=== PATIENT | female | born 1985 | race Caucasian/White ===

== ENCOUNTER 2019-09-03 17:27 | Emergency (ER) | payer OTHER ==
[~2019-09-03] VITALS: Ht 149.9 cm; Wt 59.9 kg
[2019-09-03 17:41] VITALS: BP_SYST 117
--- NOTE | 2019-09-03 18:29 | NUR ---
PATIENT PRESENTS TO THE ER WITH POSSIBLE FOREIGN BODY (GLASS) TO RIGHT MEDIAL DISTAL #2 DIGIT; WOUND HAS HEALED AND PATIENT SUSPECTS SOME GLASS MIGHT BE PRESENT SECONDARY TO PAIN; SEVEN DAY DURATION; NO FURTHER TRAUMA, NO OTHER REMARKABLE S/S
[2019-09-03 19:29] VITALS: BP_SYST 127
--- NOTE | 2019-09-03 19:29 | NUR ---
Patient given written and verbal discharge instructions and verbalizes understanding. ER MD Mcfarlane discussed with patient the results and treatment provided. Patient in stable condition. ID arm band removed. Rx of Motrin, Clindamycin given. Patient educated on pain management and to follow up with PMD. Pain Scale 0. Opportunity for questions provided and answered. Medication side effect fact sheet provided.
== END 2019-09-03 19:29 | disposition home or self-care (01) ==
LOC: SED 17:27
DX: L03.011 Cellulitis of right finger (principal)
CPT/HCPCS: 73140-TC; 99283

== ENCOUNTER 2021-04-16 12:40 | Emergency (ER) | payer OTHER ==
[~2021-04-16] VITALS: Ht 149.9 cm; Wt 61.2 kg
[2021-04-16 13:02] VITALS: BP_SYST 133
--- NOTE | 2021-04-16 14:30 | NUR ---
Patient to [facility] for evaluation.
--- NOTE | 2021-04-16 14:30 | NUR ---
Pt came into ER with complaint of hand pain due to swatting a palm tree that was coming at her 12/20. Pt is AAOX4 speaking full sentences. No distress noted at this time. No trauma noted.
--- NOTE | 2021-04-16 14:31 | NUR ---
ER seeing pt in fast track.
[2021-04-16] MEDS ORDERED: IBUP-1969 PO (14:46)
--- NOTE | 2021-04-16 15:02 | NUR ---
Patient given written and verbal discharge instructions and verbalizes understanding. ER MD discussed with patient the results and treatment provided. Patient in stable condition. ID arm band removed. Rx of motrin given. Patient educated on pain management and to follow up with PMD. Pain Scale 0/10. Opportunity for questions provided and answered. Medication side effect fact sheet provided.
[2021-04-16 15:03] VITALS: BP_SYST 133
== END 2021-04-16 15:03 | disposition home or self-care (01) ==
LOC: SED 12:40
DX: M79.644 Pain in right finger(s) (principal); M79.641 Pain in right hand; Z79.899 Other long term (current) drug therapy
CPT/HCPCS: 99283